=== PATIENT | male | born 1975 | race Caucasian/White ===

== ENCOUNTER 2020-11-18 11:44 | Emergency (ER) | payer OTHER, SELFPAY ==
[~2020-11-18] VITALS: Ht 180.3 cm; Wt 91.0 kg
[2020-11-18 11:50] VITALS: BP 151/88
--- NOTE | 2020-11-18 12:34 | NUR ---
DC EDUCATION PROVIDED, PT DEMONSTRATES UNDERSTANDING. PT AMBULATED STEADILY TO DC WITH RN AND FRIEND.
== END 2020-11-18 12:36 | disposition home or self-care (01) ==
LOC: ED 12:04
DX: L03.114 Cellulitis of left upper limb (principal)
CPT/HCPCS: 99283